=== PATIENT | female | born 1955 | race Caucasian/White ===

== ENCOUNTER → 2020-04-22 10:16 | Outpatient (BNVA) | payer OTHER, SELFPAY | PROVIDERS: Family Provider Family Medicine; Visit Provider Nurse Practitioner Family | DX: Z11.59 Encounter for screening for other viral diseases (principal) | CPT/HCPCS: 87635 ==

== ENCOUNTER 2020-04-25 07:07 | Outpatient (CLI) | payer OTHER, SELFPAY ==
--- NOTE | 2020-04-25 08:43 | PFTS_ITS ---
Date of Study:04/25/20 Date of Dictation: 04/25/2020 MECHANICS: Forced vital capacity (FVC) is normal Forced expiratory volume in one second (FEV1) is moderately reduced FEV1/FVC is reduced No significant response to bronchodilators FLOW VOLUME LOOP: Scooping of expiratory limb suggestive of obstructive ventilatory defect . LUNG VOLUMES: Not measured DIFFUSING CAPACITY FOR CARBON MONOXIDE: Not measured . INTERPRETATION: Spirometry consistent with obstructive ventilatory defect with no significant response to bronchodilators MTDD
== END 2020-04-25 07:08 | disposition home or self-care (01) ==
LOC: RT 07:08
PROVIDERS: PCP Nurse Practitioner Family; Visit Provider Nurse Practitioner Family
DX: R06.02 Shortness of breath (principal)
CPT/HCPCS: 94060; J7611

== ENCOUNTER 2020-12-17 09:48 | Outpatient (CLI) | payer OTHER, SELFPAY ==
--- NOTE | 2020-12-17 09:54 | CT_ITS ---
WS: [id number] LDCT LUNG CANCER SCREENING TECHNIQUE: Noncontrast CT of the chest with coronal and sagittal reformatted images. CLINICAL INFORMATION: HX OF TOBACCO USE COMPARISON: None. DLP: 53.79 mGy.cm DIvol: 1.[address] scans at [facility] use at least one of these dose optimization techniques: automat ed exposure control; mA and/or kV adjustment per patient size (includes targeted exams where dose is matched to clinical indication); or iterative reconstruction. FINDINGS: Moderate chronic emphysematous changes. No suspicious pulmonary parenchymal opacities. No acute pulmo nary infiltrates. No focal pneumonia or pleural fluid. Aortic calcification. Coronary calcification. No mediastinal or hilar lymphadenopathy. Small esophageal hiatal hernia. Adrenal glands are normal. C hronic anterior wedging in the mid thoracic spine with endplate Schmorl's nodes. CT/CT lung screening [id number] IMPRESSION: LUNG-RADS: 2-Benign Appearance or Behavior FOLLOW UP: 12 Month: Continue annual screening with LDCT
== END 2020-12-17 09:49 | disposition home or self-care (01) ==
LOC: CT 09:52
PROVIDERS: PCP Nurse Practitioner Family; Visit Provider Nurse Practitioner Family
DX: Z12.2 Encounter for screening for malignant neoplasm of respiratory organs (principal); Z87.891 Personal history of nicotine dependence; I25.10 Atherosclerotic heart disease of native coronary artery without angina pectoris; K44.9 Diaphragmatic hernia without obstruction or gangrene; M48.54XA Collapsed vertebra, not elsewhere classified, thoracic region, initial encounter for fracture; M51.44 Schmorl's nodes, thoracic region
CPT/HCPCS: 71271

== ENCOUNTER → 2022-03-09 11:46 | Outpatient (BNVA) | payer MEDICARE, OTHER, SELFPAY | PROVIDERS: PCP Nurse Practitioner Family; Visit Provider Family Medicine | DX: Z76.89 Persons encountering health services in other specified circumstances (principal); I10 Essential (primary) hypertension; M25.561 Pain in right knee; G89.29 Other chronic pain | CPT/HCPCS: 80053; 80061; 85025 ==

== ENCOUNTER → 2022-05-28 08:25 | Outpatient (BNVA) | payer MEDICARE, OTHER, SELFPAY | PROVIDERS: PCP Family Medicine; Visit Provider Family Medicine | DX: E87.6 Hypokalemia (principal) | CPT/HCPCS: 80048 ==

== ENCOUNTER 2022-12-25 10:14 | Outpatient (CLI) | payer MEDICARE, OTHER, SELFPAY ==
--- NOTE | 2022-12-25 10:32 | XR_ITS ---
WS: [id number] Left leg including the tibia and fibula, AP and lateral views, 12/25/2022 Clinical Data: Left fibular fracture, continued pain Comparison: None. Findings: There is an undisplaced fracture of the distal left fibula. The tibia is intact. The soft tissues are normal. XR/XR tibia fibula LT 2V [id number] Impression: Distal left fibular fracture.
--- NOTE | 2022-12-25 10:32 | XR_ITS ---
WS: [id number] Left ankle, AP and lateral views, 12/25/2022 Clinical Data: Left fibular fracture, continued pain Comparison: None. Findings: There is a nondisplaced fracture of the distal left fibula. There is soft tissue swelling over the fr acture site. There is a sclerotic line across the medial malleolus which probably represents a healed fracture of indeterminate age. The ankle mortise is normal. XR/XR ankle LT 2V [id number] Impression: 1. Undisplaced fracture of distal left fibula. 2. Possible old fracture of medial malleolus.
== END 2022-12-25 10:15 | disposition home or self-care (01) ==
LOC: RAD 10:19
PROVIDERS: PCP Family Medicine; Visit Provider Family Medicine
DX: S82.202A Unspecified fracture of shaft of left tibia, initial encounter for closed fracture (principal); S82.832A Other fracture of upper and lower end of left fibula, initial encounter for closed fracture; X58.XXXA Exposure to other specified factors, initial encounter; I10 Essential (primary) hypertension; E87.6 Hypokalemia
CPT/HCPCS: 73590; 73600; 80053; 80061; 85025

== ENCOUNTER 2023-01-14 09:13 | Outpatient (CLI) | payer MEDICARE, OTHER, SELFPAY ==
--- NOTE | 2023-01-14 09:23 | XR_ITS ---
WS: [id number] Exam: XR ankle LT 2V [id number] Date/Time of Exam: 01/14/2023 9:26 AM Reason For Exam: Left ankle pain Comparison 12/25/2022. Healing fracture of the lower fibula remains in good alignment. No change. No other acute fractures a re identified. The ankle mortise is well-maintained. XR/XR ankle LT 2V [id number] IMPRESSION: 1. Healing fracture of the lower fibula remaining in satisfactory position.
== END 2023-01-14 09:14 | disposition home or self-care (01) ==
LOC: RAD 09:18
PROVIDERS: PCP Family Medicine; Visit Provider Family Medicine
DX: S82.832D Other fracture of upper and lower end of left fibula, subsequent encounter for closed fracture with routine healing (principal); X58.XXXD Exposure to other specified factors, subsequent encounter
CPT/HCPCS: 73600

== ENCOUNTER → 2023-03-30 16:04 | Outpatient (BNVA) | payer MEDICARE, SELFPAY | PROVIDERS: PCP Family Medicine; Visit Provider Podiatrist Foot & Ankle Surgery | DX: S82.402K Unspecified fracture of shaft of left fibula, subsequent encounter for closed fracture with nonunion; W19.XXXD Unspecified fall, subsequent encounter | CPT/HCPCS: 73610; 99203 ==

== ENCOUNTER → 2023-06-22 15:44 | Outpatient (BNVA) | payer MEDICARE, SELFPAY | PROVIDERS: PCP Family Medicine; Visit Provider Family Medicine | DX: M25.572 Pain in left ankle and joints of left foot (principal) | CPT/HCPCS: 73600 ==

== ENCOUNTER 2023-07-02 08:29 | Outpatient (CLI) | payer MEDICARE, SELFPAY ==
--- NOTE | 2023-07-02 08:34 | MM_ITS ---
WS: [id number] VIEWS: MLO and CC views both breasts. 3D digital tomosynthesis is also included in this exam. Comparison made with prior exam of 04/25/2010, 04/16/2017.. Findings: There was no sign of mass, architectural distortion or suspicious calcification in either breast. The breasts are almost entirely fatty. Impression: MM/[place] [id number] BI-RADS: 1-Negative FOLLOW-UP: 1 Year Follow-up This mammogram was also analyzed by the Computer Aided Detection System R2 Imag e Environmental [employer] Assistant.
== END 2023-07-02 08:30 | disposition home or self-care (01) ==
LOC: RAD 08:29
PROVIDERS: PCP Family Medicine; Visit Provider Family Medicine
DX: Z12.31 Encounter for screening mammogram for malignant neoplasm of breast (principal)
CPT/HCPCS: 77063; 77067

== ENCOUNTER → 2023-07-31 12:48 | Outpatient (BNVA) | payer MEDICARE, SELFPAY | PROVIDERS: PCP Family Medicine; Visit Provider Family Medicine | DX: M25.572 Pain in left ankle and joints of left foot (principal); M25.562 Pain in left knee; M17.12 Unilateral primary osteoarthritis, left knee; M79.605 Pain in left leg | CPT/HCPCS: 73560; 73590; 73600; 73610 ==

== ENCOUNTER → 2023-08-31 09:25 | Outpatient (BNVA) | payer MEDICARE, SELFPAY | PROVIDERS: PCP Family Medicine; Referring Provider Family Medicine; Visit Provider Student in an Organized Health Care Education/Training Program | DX: M17.12 Unilateral primary osteoarthritis, left knee; Z46.89 Encounter for fitting and adjustment of other specified devices; M25.562 Pain in left knee | CPT/HCPCS: 73560; 73565; 97760; 99204; L1851 ==

== ENCOUNTER 2023-08-31 11:19 | Outpatient (CLI) | payer MEDICARE, SELFPAY | END 2023-08-31 11:20 | disposition home or self-care (01) | LOC: SPT 11:21 | PROVIDERS: PCP Family Medicine; Visit Provider Student in an Organized Health Care Education/Training Program | DX: Z46.89 Encounter for fitting and adjustment of other specified devices (principal); M17.12 Unilateral primary osteoarthritis, left knee; M25.562 Pain in left knee | CPT/HCPCS: 97760; 99204; L1851 ==

== ENCOUNTER → 2023-11-16 12:50 | Outpatient (BNVA) | payer MEDICARE, SELFPAY | PROVIDERS: PCP Family Medicine; Visit Provider Student in an Organized Health Care Education/Training Program | DX: M17.12 Unilateral primary osteoarthritis, left knee (principal) | CPT/HCPCS: 20610; 99213; J7318 ==

== ENCOUNTER → 2024-03-23 10:28 | Outpatient (BNVA) | payer MEDICARE, SELFPAY | PROVIDERS: PCP Family Medicine; Visit Provider Family Medicine | DX: I10 Essential (primary) hypertension (principal); R79.89 Other specified abnormal findings of blood chemistry; F32.9 Major depressive disorder, single episode, unspecified; E78.2 Mixed hyperlipidemia; J44.9 Chronic obstructive pulmonary disease, unspecified; R49.0 Dysphonia; E55.9 Vitamin D deficiency, unspecified | CPT/HCPCS: 80053; 80061; 82306; 82607; 82746; 83540; 84443; 85025 ==

== ENCOUNTER → 2024-05-30 09:43 | Outpatient (BNVA) | payer MEDICARE, SELFPAY | PROVIDERS: PCP Family Medicine; Visit Provider Physician Assistant | DX: M17.12 Unilateral primary osteoarthritis, left knee | CPT/HCPCS: 20610; 99213; J7318 ==

== ENCOUNTER 2025-01-10 09:48 | Outpatient (CLI) | payer MEDICARE, SELFPAY ==
--- NOTE | 2025-01-10 10:00 | MM_ITS ---
WS: [id number] BILATERAL SCREENING DIGITAL TOMOSYNTHESIS MAMMOGRAM WITH CAD HISTORY: Z12.31 - Encounter for screening mammogram for malignant ... COMPARISON: 07/02/2023, 04/16/2017 Bilateral CC and MLO views with tomosynthesis and synthetic mammography submitted. Computer aided detection analyzed. Breast composition: There are scattered areas of fibroglandular density. No suspicious masses, microcalcifications or architectural distortion. Benign calcifications in each breast. RIGHT intramammary lymph node. MM/MM scr BI tomosynthesis [id number] IMPRESSION: BI-RADS: 2 - Benign. FOLLOW UP: 1 Year Follow-up
== END 2025-01-10 09:49 | disposition home or self-care (01) ==
PROVIDERS: PCP Family Medicine; Visit Provider Family Medicine
DX: Z12.31 Encounter for screening mammogram for malignant neoplasm of breast (principal)
CPT/HCPCS: 77063; 77067

== ENCOUNTER → 2025-01-11 10:48 | Outpatient (BNVA) | payer MEDICARE, SELFPAY | PROVIDERS: PCP Family Medicine; Visit Provider Family Medicine | DX: R10.9 Unspecified abdominal pain (principal) | CPT/HCPCS: 81000 ==

== ENCOUNTER → 2025-01-17 07:52 | Outpatient (BNVA) | payer MEDICARE, SELFPAY | PROVIDERS: PCP Family Medicine; Visit Provider Physician Assistant | DX: M25.562 Pain in left knee (principal); G89.29 Other chronic pain; M17.12 Unilateral primary osteoarthritis, left knee | CPT/HCPCS: 20610; 73560; 73565; 99213; J7318 ==

== ENCOUNTER 2025-03-01 08:33 | Outpatient (CLI) | payer MEDICARE, SELFPAY ==
--- NOTE | 2025-03-01 08:41 | XR_ITS ---
WS: [id number] KUB, AP view, 03/01/2025 Clinical Data: R10.9 - Unspecified abdominal pain Comparison: None. Findings: No abnormal intraabdominal masses or calcifications are seen. There is no dilatated small bowel or evidence of obstruction. There is a moderate amount of fecal material in the colon. No radiopaque foreign body is seen. XR/XR KUB [id number] Impression: Fecal material in the colon.
== END 2025-03-01 08:34 | disposition home or self-care (01) ==
PROVIDERS: PCP Family Medicine; Visit Provider Family Medicine
DX: K59.00 Constipation, unspecified (principal)
CPT/HCPCS: 74018

== ENCOUNTER → 2025-03-22 14:31 | Outpatient (BNVA) | payer MEDICARE, SELFPAY | PROVIDERS: PCP Family Medicine; Visit Provider Student in an Organized Health Care Education/Training Program | DX: R19.5 Other fecal abnormalities (principal) | CPT/HCPCS: 99204 ==

== ENCOUNTER 2025-04-16 10:22 | Day surgery (SDC) | payer MEDICARE, SELFPAY ==
[2025-04-16 10:34] VITALS: BP 151/92; PULSE 72; RESP 17; TEMP 36.1; O2SAT 96; BMI 29.6
--- NOTE | 2025-04-16 10:42 | ANES.PREANE2 ---
Pre-Anesthetic Assessment Height/Weight: Height 1.65 m Weight 80.739 kg Temp Pulse Resp BP Pulse Ox O2 Del Method 97.0 F L 72 17 151/92 96 Room Air 04/16/25 10:34 04/16/25 10:34 04/16/25 10:34 04/16/25 10:34 04/16/25 10:34 04/16/25 10:34 Preop Diagnosis: positive cologard test Operation Date: 04/16/25 11:45 Proposed Procedures p Colonoscopy [id number] Z12.11(Not Applicable) - Toby Tan MD Was Beta Araceli taken within 24 hours: N/A Was Clonidine taken within 24 hours: N/A Last intake: Intake Last Liquid Date 04/15/25 Last Liquid Time 20:00 Last Solid Date 04/14/25 Last Solid Time 19:00 Social Tobacco and No alcohol 1/2 ppd pack(s) per day Exam alert and oriented x 3 Airway Submandibular: within normal limits Cervical ROM: within normal limits Mallampati: Class II Dentition: false History/ROS No significant history except as noted Pulmonary Chronic Obstructive Pulmonary Disease and Shortness of Breath (hasnt had to use emergency inhaler in a week) CV/HEM Deep Vein Thrombosis (history 10 years ago; dissolved) and Hypertension denies CP None reported Hepatic None reported GI Gastroesophageal Reflux Disease (controlled) Metabolic Hyperlipidemia [facility] None reported Neuropsych Depression Anesthetic Plan ASA status: 3 Anesthesia: MAC Risk of > 500 ml blood loss (7ml/kg in children): No Medications/Allergies Home Medications ?Medication ?Instructions ?Recorded ?Confirmed ?Last Taken ?Type cholecalciferol (vitamin D3) 50 50 mcg PO BEDTIME 12/05/20 04/16/25 04/14/25 History mcg (2,000 unit) capsule zinc acetate 50 mg (zinc) capsule 50 mg PO BEDTIME 12/05/20 04/16/25 04/14/25 History (Galzin) albuterol sulfate 90 mcg/actuation 2 puff inhalation Q6H PRN 08/11/24 04/16/25 Unknown Rx aerosol inhaler bronchospasm #8.5 grams sennosides 8.6 mg-docusate sodium 1 tab-cap PO DAILY PRN 02/08/25 04/11/25 04/10/25 Rx 50 mg tablet (Senna with Docusate constipation #60 tabs Sodium) pregabalin 200 mg capsule 200 mg PO BID #180 caps 03/07/25 04/16/25 04/14/25 Rx alprazolam 1 mg tablet 1 mg PO BEDTIME 04/11/25 04/16/25 04/11/25 History amitriptyline 25 mg tablet 25 mg PO BEDTIME 04/11/25 04/16/25 04/14/25 History atorvastatin 40 mg tablet 40 mg PO BEDTIME 04/11/25 04/16/25 04/14/25 History lisinopril 40 mg tablet 40 mg PO BEDTIME 04/11/25 04/16/25 04/14/25 History montelukast 10 mg tablet 10 mg PO BEDTIME 04/11/25 04/16/25 04/14/25 History omeprazole 40 mg capsule,delayed 40 mg PO DAILY 04/11/25 04/16/25 04/14/25 History release spironolactone 25 mg tablet 25 mg PO BEDTIME 04/11/25 04/16/25 04/14/25 History umeclidinium 62.5 mcg-vilanterol 1 inh inhalation DAILY 04/11/25 04/16/25 04/16/25 History 25 mcg/actuation powdr for inhalation (Anoro Ellipta) venlafaxine 150 mg 150 mg PO BEDTIME 04/11/25 04/16/25 04/14/25 History capsule,extended release 24 hr hydrocodone 5 mg-acetaminophen 325 2 tab PO BID pain 30 days #120 tabs 04/12/25 04/16/25 04/13/25 Rx mg tablet Allergies Allergy/AdvReac Type Severity Reaction Status Date / Time Penicillins Allergy Intermediate SWELLING, Verified 04/16/25 10:30 ITCHING [facility] Anesthesia Medical History Chronic constipation Family History Father Hypertension Osteoarthritis Mother Hypertension Depression Brother Hypertension Melanoma Sister Hypertension Social History Smoking and tobacco/nicotine status: current every day tobacco/nicotine user cigarettes Packs smoked per day: 0.5 Years cigarettes smoked: 30 Alcohol intake: never Substance/Drug Use: never Female Reproductive History Spontaneous abortions: No
--- NOTE | 2025-04-16 10:58 | W.PM.OPSUD ---
Surgery/Procedure H&P Update DATE OF PROCEDURE: April 16, 2025 DATE H&P PERFORMED: 03/22/25 H&P UPDATE INFORMATION: I have reviewed H&P completed within last 30 days, I have examined patient prior to procedure, No changes to prior documentation and Risks and benefits of the procedure reviewed PREOP DIAGNOSIS: positive cologard test PLANNED PROCEDURE: Operation Date: 04/16/25 11:45 Proposed Procedures p Colonoscopy [id number] G0105 Z12.11(Not Applicable) - Toby Tan MD
[2025-04-16 11:28] VITALS: BP 150/90; PULSE 63; RESP 16; TEMP 36.2; O2SAT 96
[2025-04-16 11:36] VITALS: BP 137/98; PULSE 57; RESP 16; O2SAT 97
[2025-04-16 11:48] VITALS: BP 139/86; PULSE 55; RESP 16; O2SAT 95
--- NOTE | 2025-04-16 12:05 | ANE.PACU2 ---
Inpatient post-anesthesia follow up: Airway intact: Yes Vital signs: Temperature 97.1 F Pulse Rate 55 Respiratory Rate 16 Blood Pressure 139/86 Pulse Oximetry 95 Oxygen Delivery Me thod Room Air Oxygen Flow Rate Fraction of Inspir ed Oxygen Hydration adequate: Yes Nausea and vomiting: No Pain level: 1 Mental status: Baseline
== END 2025-04-16 12:04 | disposition home or self-care (01) ==
PROVIDERS: PCP Family Medicine; Visit Provider Student in an Organized Health Care Education/Training Program
PROC: 0DJD8ZZ Inspection of Lower Intestinal Tract, Via Natural or Artificial Opening Endoscopic (ICD-10-PCS; CPT 45378; principal; 2025-04-16 11:45)
DX: Z12.11 Encounter for screening for malignant neoplasm of colon (principal); R19.5 Other fecal abnormalities; K64.1 Second degree hemorrhoids; D12.4 Benign neoplasm of descending colon; D12.8 Benign neoplasm of rectum; J44.9 Chronic obstructive pulmonary disease, unspecified; I82.409 Acute embolism and thrombosis of unspecified deep veins of unspecified lower extremity; I10 Essential (primary) hypertension; K21.9 Gastro-esophageal reflux disease without esophagitis; E78.5 Hyperlipidemia, unspecified; F32.A Depression, unspecified; K59.09 Other constipation; F17.210 Nicotine dependence, cigarettes, uncomplicated
CPT/HCPCS: 45380; 45385; 88305; J2704; J7030

== ENCOUNTER → 2025-04-30 08:54 | Outpatient (BNVA) | payer MEDICARE, SELFPAY | PROVIDERS: PCP Family Medicine; Visit Provider Student in an Organized Health Care Education/Training Program | DX: Z09 Encounter for follow-up examination after completed treatment for conditions other than malignant neoplasm (principal) | CPT/HCPCS: 99213 ==